=== PATIENT | male | born 1970 | race Caucasian/White ===

== ENCOUNTER 2017-08-20 21:31 | Emergency (ER) | payer SELFPAY, MEDICAID ==
[2017-08-21] MEDS: LEVALBUTEROL (NEB) 1.25 MG/0.5 ML AMP HHN (00:55)
[2017-08-21] MEDS: IPRATROPIUM (NEB) 0.5 MG/2.5 ML AMP HHN (00:55)
[2017-08-21 01:21] LABS: ADD MAN DIFF? NO
[2017-08-21 01:23] LABS: BASOPHILS % 0.7 % (0.0-2.0); EOSINOPHILS # 0.2 10^3/ul (0.0-0.5); EOSINOPHILS % 2.8 % (0.0-7.0); HEMATOCRIT 46.5 % (42.0-52.0); HEMOGLOBIN 16.5 g/dl (14.0-18.0); LYMPHOCYTES # 2.8 10^3/ul (0.8-2.9); LYMPHOCYTES % 49.6 % (15.0-51.0); MEAN CORPUSCULAR HEMOGLOBIN 30.2 pg (29.0-33.0); MEAN CORPUSCULAR HGB CONC 35.5 g/dl (32.0-37.0); MONOCYTE # 0.6 10^3/ul (0.3-0.9); MONOCYTES % 10.3 % (0.0-11.0); NEUTROPHILS % 36.2 % (39.0-77.0); PLATELET COUNT 185 10^3/UL (140-415); RED BLOOD COUNT 5.47 10^6/ul (4.70-6.10)
[2017-08-21 01:23] LABS: WHITE BLOOD COUNT 5.6 10^3/ul (4.8-10.8)
[2017-08-21 01:50] LABS: ANION GAP 13 (8-16); BLOOD UREA NITROGEN 11 mg/dl (7-20); CALCIUM 9.2 mg/dl (8.4-10.2); CARBON DIOXIDE 29 mmol/L (21-31); CHLORIDE 101 mmol/L (97-110); CREATININE 0.83 mg/dl (0.61-1.24); GLUCOSE 101 mg/dl (70-220); POTASSIUM 3.9 mmol/L (3.5-5.1); SODIUM 139 mmol/L (135-144)
[2017-08-21 02:01] LABS: TROPONIN-I < 0.012 ng/ml (0.00-0.12)
== END 2017-08-21 02:32 | disposition home or self-care (01) ==
LOC: E/R 21:31
DX: J45.909 Unspecified asthma, uncomplicated (principal); R40.2252 Coma scale, best verbal response, oriented, at arrival to emergency department; R40.2142 Coma scale, eyes open, spontaneous, at arrival to emergency department; R40.2362 Coma scale, best motor response, obeys commands, at arrival to emergency department
CPT/HCPCS: 36415; 71045; 80048; 84484; 85025; 93005; 94664; 99285-25

== ENCOUNTER 2017-12-03 22:45 | Emergency (ER) | payer MEDICAID ==
[2017-12-04] MEDS: FAMOTIDINE 20 MG TAB PO (03:04)
[2017-12-04] MEDS: NAPROXEN 500 MG TAB PO (03:04)
[2017-12-04 03:13] LABS: URINE BLOOD (Dip) POC Negative (NEGATIVE); URINE GLUCOSE (Dip) POC Negative (NEGATIVE); URINE KETONES (Dip) POC Negative (NEGATIVE); URINE LEUKOCYTE EST (Dip) POC Negative (NEGATIVE); URINE NITRITE (Dip) POC Negative (NEGATIVE); URINE TOTAL PROTEIN POC Negative (NEGATIVE)
== END 2017-12-04 03:49 | disposition home or self-care (01) ==
LOC: FTE 22:45
DX: S39.011A Strain of muscle, fascia and tendon of abdomen, initial encounter (principal); X58.XXXA Exposure to other specified factors, initial encounter; Y92.9 Unspecified place or not applicable
CPT/HCPCS: 81003; 99283

== ENCOUNTER 2018-03-05 11:02 | Emergency (ER) | payer SELFPAY, MEDICAID | END 2018-03-05 12:31 | disposition home or self-care (01) | LOC: FTE 11:02 | DX: K52.9 Noninfective gastroenteritis and colitis, unspecified (principal) | CPT/HCPCS: 99282 ==

== ENCOUNTER 2018-08-01 02:51 | Emergency (ER) | payer MEDICAID ==
[2018-08-01] MEDS: HYDROCODONE/APAP (10/325) TAB PO (04:13)
== END 2018-08-01 04:19 | disposition home or self-care (01) ==
LOC: FTE 02:51
DX: K04.7 Periapical abscess without sinus (principal); J32.9 Chronic sinusitis, unspecified
CPT/HCPCS: 99283; Z7502

== ENCOUNTER 2018-08-07 13:43 | Emergency (ER) | payer MEDICAID | END 2018-08-07 15:30 | disposition home or self-care (01) | LOC: FTE 13:43 | DX: L30.9 Dermatitis, unspecified (principal) | CPT/HCPCS: 99282 ==

== ENCOUNTER 2018-10-10 09:06 | Emergency (ER) | payer SELFPAY, MEDICAID ==
[2018-10-10 09:53] LABS: ADD MAN DIFF? NO
[2018-10-10] MEDS: SOD CHLORIDE 0.9% 1,000 ML IV (09:58)
[2018-10-10 10:05] LABS: WHITE BLOOD COUNT 6.3 10^3/ul (4.8-10.8)
[2018-10-10 10:05] LABS: BASOPHIL # 0.1 10^3/ul (0.0-0.1); BASOPHILS % 0.9 % (0.0-2.0); EOSINOPHILS # 0.1 10^3/ul (0.0-0.5); EOSINOPHILS % 2.1 % (0.0-7.0); HEMOGLOBIN 17.3 g/dl (14.0-18.0); LYMPHOCYTES # 2.5 10^3/ul (0.8-2.9); LYMPHOCYTES % 39.3 % (15.0-51.0); MEAN CORPUSCULAR HEMOGLOBIN 30.1 pg (29.0-33.0); MEAN CORPUSCULAR HGB CONC 34.6 g/dl (32.0-37.0); MEAN PLATELET VOLUME 10.4 fl (7.4-10.4); MONOCYTE # 0.6 10^3/ul (0.3-0.9); MONOCYTES % 9.6 % (0.0-11.0); NEUTROPHILS % 47.8 % (39.0-77.0); PLATELET COUNT 232 10^3/UL (140-415); RED BLOOD COUNT 5.75 10^6/ul (4.70-6.10); RED CELL DISTRIBUTION WIDTH 13.1 % (11.5-14.5)
[2018-10-10 10:25] LABS: ANION GAP 11 (5-13); BLOOD UREA NITROGEN 12 mg/dl (7-20); CALCIUM 9.8 mg/dl (8.4-10.2); CARBON DIOXIDE 28 mmol/L (21-31); CHLORIDE 102 mmol/L (97-110); Estimated GFR > 60 mL/min (>60); GLUCOSE 100 mg/dl (70-220); POTASSIUM 4.1 mmol/L (3.5-5.1); SODIUM 141 mmol/L (135-144)
[2018-10-10 10:36] LABS: TROPONIN-I < 0.012 ng/ml (0.000-0.120)
== END 2018-10-10 11:06 | disposition home or self-care (01) ==
LOC: E/R 09:06
DX: R00.2 Palpitations (principal)
CPT/HCPCS: 36415; 71045; 80048; 84484; 85025; 93005; 99285-25

== ENCOUNTER 2019-04-24 16:36 | Emergency (ER) | payer SELFPAY ==
[2019-04-24 17:17] LABS: ADD UMIC NO; UR ASCORBIC ACID 40 mg/dL (NEGATIVE); UR BILIRUBIN (Dip) NEGATIVE (NEGATIVE); UR BLOOD (Dip) NEGATIVE (NEGATIVE); UR CLARITY CLEAR (CLEAR); UR COLOR YELLOW (YELLOW); UR GLUCOSE (Dip) NEGATIVE (NEGATIVE); UR KETONES (Dip) NEGATIVE (NEGATIVE); UR LEUKOCYTE ESTERASE (Dip) NEGATIVE Leu/ul (NEGATIVE); UR NITRITE (Dip) NEGATIVE (NEGATIVE); UR SPECIFIC GRAVITY (Dip) 1.016 (1.003-1.030); UR TOTAL PROTEIN (Dip) NEGATIVE (NEGATIVE); UR UROBILINOGEN (Dip) NEGATIVE (NEGATIVE)
== END 2019-04-24 17:37 | disposition home or self-care (01) ==
LOC: E/R 17:37
DX: R30.0 Dysuria (principal)
CPT/HCPCS: 81003; 87591; 99283